=== PATIENT | female | born 1975 | race Caucasian/White ===

== ENCOUNTER → 2018-05-02 | Emergency (ER) | payer OTHER, MEDICARE ==
[~2018-05-02] VITALS: Ht 162.6 cm; Wt 114.3 kg
[~2018-05-02] MED LIST: CATAPRES0.2 MG PO; CLONAZEPAM2 MG GT; CRUTCH1 EACH MISC; ESOMEPRAZOLE MA40 MG PO; IBU800 MG PO; VENTOLIN HFA18 GM INH; VIIBRYD20 MG PO; VRAYLAR6 MG PO
== END ==
LOC: ED 20:33
DX: S93.401A Sprain of unspecified ligament of right ankle, initial encounter (principal); F17.200 Nicotine dependence, unspecified, uncomplicated; Z88.5 Allergy status to narcotic agent; Z88.8 Allergy status to other drugs, medicaments and biological substances; Z79.899 Other long term (current) drug therapy; W18.40XA Slipping, tripping and stumbling without falling, unspecified, initial encounter; X50.1XXA Overexertion from prolonged static or awkward postures, initial encounter
CPT/HCPCS: 73610; 99283